=== PATIENT | female | born 1980 | race Two or more races ===

== ENCOUNTER 2017-12-15 12:25 | Emergency (ER) | payer OTHER ==
[2017-12-15 12:41] VITALS: BP 105/76
[2017-12-15] MEDS ORDERED: CEPHALEXIN 500 MG CAP PO ONE (13:02)
--- NOTE | 2017-12-15 13:04 | EDPHY ---
H & P Stated Complaint: RX DOXYCYCLINE FOR R MASTITIS/FINISHED MED YESTERDAY ABD SYMPTOMS RETURNED Time Seen by Provider: 12/15/17 12:53 HPI/ROS: CHIEF COMPLAINT: Mastitis HISTORY OF PRESENT ILLNESS: The patient is a 37-year-old female who comes to the emergency department complaining of mastitis in her right breast. She states that this is her 5th episode of mastitis with this child. In the past she has been treated with Keflex or dicloxacillin. She states that she just finished a course of dicloxacillin yesterday but that she had not taken a completely faithfully and had missed several doses. Last night she began having increased pain again and had chills. No fevers. No nausea vomiting. She is visiting from [place]. She comes requesting another prescription for antibiotics. She states that she has been checked multiple times for abscesses by ultrasound and they have always been negative. Severity: Moderate Modifying factors: None REVIEW OF SYSTEMS: Constitutional: denies: chills, fever, recent illness, recent injury EENTM: denies: blurred vision, double vision, nose congestion Respiratory: denies: cough, shortness of breath Cardiac: denies: chest pain, irregular heart rate, lightheadedness, palpitations Gastrointestinal/Abdominal: denies: abdominal pain, diarrhea, nausea, vomiting, blood streaked stools Genitourinary: denies: dysuria, frequency, hematuria, pain Musculoskeletal: denies: joint pain, muscle pain Skin: See HPI Neurological: denies: headache, numbness, paresthesia, tingling, dizziness, weakness Hematologic/Lymphatic: denies: blood clots, easy bleeding, easy bruising Immunologic/allergic: denies: HIV/AIDS, transplant 10 systems reviewed and negative except as noted EXAM: GENERAL: Well-appearing, well-nourished and in no acute distress. HEAD: Atraumatic, normocephalic. EYES: Pupils equal round and reactive to light, extraocular movements intact, sclera anicteric, conjunctiva are normal. ENT: TMs normal, nares patent, oropharynx clear without exudates. Moist mucous membranes. NECK: Normal range of motion, supple without lymphadenopathy or JVD. LUNGS: Breath sounds clear to auscultation bilaterally and equal. No wheezes rales or rhonchi. HEART: Regular rate and rhythm without murmurs, rubs or gallops. ABDOMEN: Soft, nontender, normoactive bowel sounds. No guarding, no rebound. No masses appreciated. BACK: No CVA tenderness, no spinal tenderness, step-offs or deformities EXTREMITIES: Normal range of motion, no pitting or edema. No clubbing or cyanosis. NEUROLOGICAL: Cranial nerves II through XII grossly intact. Normal speech, normal gait. 5/5 strength, normal movement in all extremities, normal sensation , normal reflexes PSYCH: Normal mood, normal affect. SKIN: Right breast with very slight erythematous region, mild tenderness with palpation, no obvious abscess. No drainage. Source: Patient Exam Limitations: No limitations - Personal History LMP (Females 10-55): Over 28 Days Ago Current Tetanus Diphtheria and Acellular Pertussis (TDAP): Yes - Medical/Surgical History Hx Asthma: No Hx Chronic Respiratory Disease: No Hx Diabetes: No Hx Cardiac Disease: No Hx Renal Disease: No Hx Cirrhosis: No Hx Alcoholism: No Hx HIV/AIDS: No Hx Splenectomy or Spleen Trauma: No Other PMH: MASTITIS - Family History Significant Family History: No pertinent family hx - Social History Smoking Status: Never smoked Alcohol Use: Sober Drug Use: None Constitutional: Initial Vital Signs Temperature (C) 37.1 C 12/15/17 12:37 Heart Rate 83 12/15/17 12:37 Respiratory Rate 18 12/15/17 12:37 Blood Pressure 105/76 12/15/17 12:37 O2 Sat (%) 94 12/15/17 12:37 O2 Delivery Mode Room Air Allergies/Adverse Reactions: terfenadine [From Seldane] Allergy (Verified 12/15/17 12:37) Home Medications: Medication Instructions Recorded Cephalexin [Keflex] 500 mg PO Q6H #40 cap 12/15/17 Medical Decision Making ED Course/Re-evaluation: 1:00 p.m. the patient has had recurrent episode of mastitis. She just finished dicloxacillin. She states the Keflex as worked better for her in the past. I offered ultrasound to rule out abscess although I think she is low risk. She declined. She declines blood work at this point. I will ask start her on Keflex and does not improve the next couple of days she will return for re- evaluation. She is on active duty . Differential Diagnosis: Partial list of the Differential diagnosis considered include but were not limited to; mastitis, breast abscess and although unlikely based on the history and physical exam, I also considered clogged mammary duct, engorgement, hematoma. I discussed these differential diagnoses and the plan with the patient as well as the usual and expected course. The patient understands that the diagnosis is provisional and that in medicine we are not always correct and that further workup is often warranted. Usual and customary warnings were given. All of the patient's questions were answered. The patient was instructed to return to the emergency department should the symptoms at all worsen or return, otherwise to followup with the physician as we discussed. - Data Points Medications Given: Discontinued Medications Cephalexin HCl (Keflex) 500 mg PO EDNOW ONE PRN Reason: Protocol Stop: 12/15/17 13:03 Last Admin: 12/15/17 13:13 Dose: 500 mg Departure - Departure Disposition: Home, Routine, Self-Care Clinical Impression: Mastitis, right, acute Condition: Fair Instructions: Mastitis (ED) Referrals: NICK,DOCTOR [Other] - 2-3 days, call for appt. Prescriptions: Cephalexin [Keflex] 500 mg PO Q6H #40 cap
== END 2017-12-15 13:19 | disposition home or self-care (01) ==
DX: O91.23 Nonpurulent mastitis associated with lactation (principal)